=== PATIENT | male | born 1965 | race Two or more races ===

== ENCOUNTER 2020-04-20 12:30 | Outpatient (CLI) | payer OTHER | END 2020-04-20 13:35 | disposition home or self-care (01) | LOC: SONOGRAMA 12:30 | PROVIDERS: ATTEND Pathology Anatomic Pathology & Clinical Pathology | DX: E04.1 Nontoxic single thyroid nodule (principal); D34 Benign neoplasm of thyroid gland ==

== ENCOUNTER 2020-08-21 11:16 | Outpatient (CLI) | payer OTHER | END 2020-08-21 11:23 | disposition home or self-care (01) | LOC: SONOGRAMA 11:16 | PROVIDERS: ATTEND Pathology Anatomic Pathology & Clinical Pathology | DX: D34 Benign neoplasm of thyroid gland (principal); E04.8 Other specified nontoxic goiter ==